=== PATIENT | male | born 1970 | race African-American/Black ===

== ENCOUNTER 2023-02-15 18:17 | Emergency (ER) | payer OTHER, SELFPAY ==
[2023-02-15 18:45] VITALS: BP 145/77; PULSE 95; RESP 18; TEMP 36.6; O2SAT 100
[2023-02-15 20:22] LABS: Basophils Absolute Auto 0.1 K/mm3 (0.0-0.1); Basophils Percent Auto 0.8 % (0.2-1.2); Eosinophils Absolute Auto 0.2 K/mm3 (0-0.3); Eosinophils Percent Auto 2.2 % (0-4.4); Hematocrit 41.1 % (42.0-52.0); Hemoglobin 13.5 g/dL (14.0-18.0); Immature Granulocyte Absolute 0.04 K/mm3 (0.00-0.031); Immature Granulocyte Percent A 0.4 % (0-0.5); Lymphocytes Absolute Auto 3.11 K/mm3 (0.9-3.2); Mean Corpuscular HGB Conc 32.8 g/dl (32-36); Mean Corpuscular Hemoglobin 30.7 pg (26-34); Mean Corpuscular Volume 93.4 fl (80-100); Mean Platelet Volume 10.2 fl (7.4-10.4); Monocytes Percent Auto 9.7 % (2.6-8.5); Neutrophils Absolute Auto 6.2 K/mm3 (1.3-6.7); Neutrophils Percent Auto 57.9 % (45.5-73.1); Platelet Count Result 279 k/mm3 (150-375); Red Cell Distribution Width 11.9 % (11.5-14.5); White Blood Count 10.7 K/mm3 (4.5-10.0)
[2023-02-15 20:37] LABS: Ethanol < 10 mg/dL (<10); Salicylate < 1.0 mg/dL (2-20)
[2023-02-15 20:44] LABS: Alanine Aminotransferase 18 U/L (6-50); Albumin Level 4.2 g/dL (3.5-5.1); Alkaline Phosphatase 94 U/L (38-126); Anion Gap 7 mmol/L (8-16); Aspartate Amino Transferase 20 U/L (17-59); Bilirubin,Total 0.9 mg/dL (0.2-1.3); Blood Urea Nitrogen 11 mg/dL (9-20); Carbon Dioxide 25 mmol/L (22-30); Chloride 101 mmol/L (98-107); Estimated CRCL calculation 134 ml/min; Estimated Glomerular Filt Rate > 60; Glucose 170 mg/dL (65-110); Potassium 4.3 mmol/L (3.4-5.0); Sodium 133 mmol/L (137-145)
[2023-02-15 20:56] LABS: Appearance Urine Clear (Clear); Bilirubin Urine Negative (Negative); Blood Urine Negative (Negative); Color Urine Yellow (Yellow); Glucose Urine UA Negative (Negative); Ketones Urine Negative (Negative); Leukocyte Esterase Ur Negative LEU/UL (Negative); Nitrate Urine Negative (Negative); Protein Urine Negative (Negative); Specific Grav Ur 1.002 (1.001-1.035); Urobilinogen Urine 0.2 mg/dL (<2.0); pH Urine 7.5 (5.0-9.0)
[2023-02-15 21:08] LABS: Barbiturate Screen Urine Negative (Negative); Benzodiazepines Screen Urine Negative (Negative)
[2023-02-15 21:13] LABS: Add Urine Microscopic? NO; Amphetamine Screen Urine Negative (Negative); Cannabinoid Screen Urine Negative (Negative); Cocaine Screen Urine Negative (Negative); Methadone Screen Urine Negative (Negative); Opiate Screen Urine Negative (Negative); Phencyclidine Screen Urine Negative (Negative)
--- NOTE | 2023-02-15 21:17 | PC.NURSE ---
pt states I just don't feel like myself. I think I'm about to have a nervous breakdown because it's getting close to the date of my mother passing away 5 yrs ago. I want to get admitted to a psych facility for help. Pt denies any SI/HI/AH/VH/TH.
[2023-02-15 21:20] LABS: Acetaminophen < 10 ug/mL (10-30)
--- NOTE | 2023-02-15 21:29 | ED.GENADULT ---
HPI - General Adult General Chief complaint: Psychiatric Symptoms <Suraj Trinidad MD - Last Filed: 02/16/23 04:47> Stated complaint: I'm having a nervous breakdown <Suraj Trinidad MD - Last Filed: 02/16/23 04:47> Time Seen by Provider: 02/15/23 21:18 <Suraj Trinidad MD - Last Filed: 02/16/23 04:47> History of Present Illness HPI narrative: Patient is a 52-year-old gentleman who presents the emergency department with chief complaint of I think I am having a nervous breakdown. Patient reports that he has been depressed and anxious since his mother approximately 5 years ago on . Patient states that she from cancer reports that he has been very stressed by this. Patient states that he is having no thoughts of harming himself denies homicidal ideation patient denies auditory or visual hallucinations. <Suraj Trinidad MD - Last Filed: 02/16/23 04:47> Related Data Allergies/adverse reactions: Allergies Allergy/AdvReac Type Severity Reaction Status Date / Time Penicillins Allergy Hives Verified 02/15/23 18:47 <Suraj Trinidad MD - Last Filed: 02/16/23 04:47> Review of Systems Review of Systems: A 10 system review of systems was completed on the patient and is negative except for what is stated in the HPI. Nursing and ancillary documentation was reviewed. <Suraj Trinidad MD - Last Filed: 02/16/23 04:47> PMFSH Social History Social History: Social History Substance use type: does not use <Suraj Trinidad MD - Last Filed: 02/16/23 04:47> Exam Narrative: GENERAL: Well-appearing, well-nourished, and in no acute distress. HEAD: Normocephalic, atraumatic. EYES: PERRLA and EOMI. ENT: Nares clear, no rhinorrhea or epistaxis. Mucous membranes moist. NECK: Supple. CHEST: Clear to auscultation. No respiratory distress. HEART: Regular rate and rhythm. No murmur heard. Normal peripheral pulses. ABDOMEN: Soft, nontender, nondistended, normal active bowel sounds. EXTREMITIES: Normal range of motion. No edema. SKIN: Warm, dry, no rash. NEURO: No focal deficits. Alert and oriented x3. PSYCH: Normal mood and affect. <Suraj Trinidad MD - Last Filed: 02/16/23 04:47> Course Reevaluation(s) Reevaluation #1: Patient feeling much better, less depressed, less anxious, denying any suicidal or homicidal ideation, had his breakfast, and would like to go back to longterm. <Zoltan Conley MD - Last Filed: 02/16/23 11:43> Date: 02/16/23 <Zoltan Conley MD - Last Filed: 02/16/23 11:43> Time: 11:42 <Zoltan Conley MD - Last Filed: 02/16/23 11:43> Vital Signs Vital signs: Vital Signs Temperature 36.6 C 02/15/23 18:45 Pulse Rate 95 02/15/23 18:45 Respiratory Rate 18 02/15/23 18:45 Blood Pressure 145/77 H 02/15/23 18:45 Pulse Oximetry 100 02/15/23 18:45 Oxygen Delivery Room Air 02/15/23 18:45 Temperature 37.0 C 02/16/23 11:17 Pulse Rate 89 02/16/23 11:17 Respiratory Rate 16 02/16/23 11:17 Blood Pressure 131/87 02/16/23 11:17 Pulse Oximetry 100 02/16/23 11:17 Oxygen Delivery Room Air 02/15/23 18:45 <Suraj Trinidad MD - Last Filed: 02/16/23 04:47> Vital Signs Temperature 36.6 C 02/15/23 18:45 Pulse Rate 95 02/15/23 18:45 Respiratory Rate 18 02/15/23 18:45 Blood Pressure 145/77 H 02/15/23 18:45 Pulse Oximetry 100 02/15/23 18:45 Oxygen Delivery Room Air 02/15/23 18:45 Temperature 37.0 C 02/16/23 11:17 Pulse Rate 89 02/16/23 11:17 Respiratory Rate 16 02/16/23 11:17 Blood Pressure 131/87 02/16/23 11:17 Pulse Oximetry 100 02/16/23 11:17 Oxygen Delivery Room Air 02/15/23 18:45 <Zoltan Conley MD - Last Filed: 02/16/23 11:43> Medical Decision Making MDM Narrative Medical decision making narrative:
[2023-02-15 22:08] VITALS: BP 134/90; PULSE 94; RESP 14; O2SAT 100
--- NOTE | 2023-02-15 22:08 | PC.NURSE ---
patient does not want to elaborate on why he is at the hospital to this RN. Only wants to talk to physician.
[2023-02-15 22:52] LABS: Influenza A QL RT-PCR Negative (Negative); Influenza B QL RT-PCR Negative (Negative); SARS-CoV-2 RNA PCR Negative
--- NOTE | 2023-02-15 23:52 | PC.NURSE ---
[facility] contacted at [phone]. No ETA given.
--- NOTE | 2023-02-16 05:00 | PC.NURSE ---
Spoke with heater worker who states all three hospitals denied patient due to low acuity. She states she will send out an email to have another social service agency director come to speak with the patient about a possible safety plan.
--- NOTE | 2023-02-16 10:10 | PC.NURSE ---
pt on the phone with [facility] for possible admission to their facility
[2023-02-16 11:17] VITALS: BP 131/87; PULSE 89; RESP 16; TEMP 37; O2SAT 100
== END 2023-02-16 11:45 ==
PROVIDERS: Emergency Medicine; Physician Assistant; Emergency Provider Emergency Medicine
DX: F32.A Depression, unspecified (principal); Z20.822 Contact with and (suspected) exposure to COVID-19
CPT/HCPCS: 36415; 80053; 80307; 81003; 84443; 85025; 87636; 99284